=== PATIENT | female | born 1980 ===

== ENCOUNTER 2020-10-13 20:56 | Emergency (ER) | payer MEDICAID ==
[2020-10-13] MEDS ORDERED: LORazepam 2 MG/ML SDV IM ONE (22:00)
[2020-10-13] MEDS ORDERED: LORazepam 2 MG/ML SDV IM PRN (22:00)
--- NOTE | 2020-10-14 02:13 | ER ---
REASON FOR EMERGENCY ROOM VISIT: Alcohol intoxication with desire for detox. HISTORY: This 39-year-old woman with a long-standing history of alcohol abuse and alcoholism, has previously been in for treatment and/or detox at least 4 times according to her mother, who accompanied her. Apparently, she had been on a recent binge and last drank approximately 2 hours ago before she expressed the desire to get some help. Her mother therefore called the [facility] in [place], [place], who agreed to take her, but indicated that she had to stop off here to have a drug screen and a COVID test. Mom brought her here for that purpose. The patient last drank 2 hours ago. She has never had a seizure as a result of her alcoholism, but she has been through detox before. She has never had any known liver problems as a result of her alcohol disease. She denies any suicidal ideation at this time. PAST MEDICAL HISTORY: 1. She had Lyme disease 20 years ago with no sequelae. 2. Rheumatic fever as a child. 3. 3, para 3. MEDICATIONS: None. ALLERGIES: NONE TO MEDICATIONS. PHYSICAL EXAMINATION: GENERAL: She is remarkably alert for her blood alcohol level, which is 350 mg/dL. She is oriented x3 and does answer questions reasonably appropriately. She does have the smell of alcohol on her breath. She has no gross tremor, but there is a slight fine tremor at this time. She indicates she feels somewhat anxious. VITAL SIGNS: She is afebrile. Heart rate is 120, blood pressure 134/99, respirations 18, O2 sats 98% on room air. HEENT: There is no scleral icterus. She has some slight conjunctival injection. The odor of alcohol is on her breath. Her oral mucosa is dry. NECK: Supple. No JVD or adenopathy. Trachea is midline. CHEST: Clear to auscultation without wheezes, rhonchi, or rales. CARDIAC: Regular rate without murmur. ABDOMEN: Soft and nontender. No hepatosplenomegaly is noted. EXTREMITIES: Normal pulses. No edema. SKIN: No rashes. NEUROLOGIC: Her cranial nerves 2 through 12 are intact. Pupils are equally round, reactive to light. There is no demonstrable nystagmus. Deep tendon reflexes are symmetrical. Muscle strength bulk and tone symmetrical bilaterally in the upper and lower extremities. Sensory exam is normal to crude touch. SKIN: No rashes. LABORATORY DATA: Her toxicology screen was negative for any drugs, except her alcohol level as mentioned above 350 mg/dL. Her COVID-19 is pending at the time of this dictation. IMPRESSION: Alcoholism with intoxication and desire to go to detox and therapy. I talked with the mom and the patient. It is our expressed desire to not just go to detox, but also go through therapy and finally get a handle on her life and her alcoholism. Mom is awaiting the results of the COVID-19 to take her to [place] at this time. Once that result is back and assuming it is negative, we can go ahead and clear her for that. All questions were answered. Addendum: While we were awaiting the results of her Covid test, she left the building, AMA. CHAPMAN/ADINA /[id number]
== END 2020-10-13 22:25 | disposition left against medical advice (07) ==
LOC: LB.ED 20:56
DX: F10.129 Alcohol abuse with intoxication, unspecified (principal); Y90.8 Blood alcohol level of 240 mg/100 ml or more; Z20.822 Contact with and (suspected) exposure to COVID-19
CPT/HCPCS: 36415; 80307; 87635; 96372; 99284; J2060; U0002